=== PATIENT | male | born 2000 | race Caucasian/White ===

== ENCOUNTER 2023-10-18 17:56 | Emergency (ER) | payer OTHER, SELFPAY ==
[2023-10-18 17:56] VITALS: BMI 29.6
[2023-10-18 18:02] VITALS: BP 156/93
--- NOTE | 2023-10-18 18:24 | ED.GENMED ---
History of Present Illness
<BRISA Long Jr. Last Filed: 10/18/23 18:57>
General
Chief Complaint: Skin Problem
Source: patient
Exam Limitations: none
Time Seen by Provider: 10/18/23 18:07
Nursing documentation reviewed up to this point in time: agreed with
Travel History
Have you had any contact with someone who has COVID-19?: No
Do you have any symptoms of coronavirus? Fever > 100 degrees, chills, cough, shortness of breath, sore throat, loss of taste or smell, muscle aches, or headache?: No
History of Present Illness
History of Present Illness:
22-year-old male with past medical history of hypertension hyperlipidemia presenting to the emergency department today with concerns of ingrown nail to his right middle finger. Ongoing for the past 3 days. Denies any fevers or systemic symptoms.
No vomiting. Denies specific trauma to the area.
Past History
<BRISA Long Jr. Last Filed: 10/18/23 18:57>
Past History
ED Past Medical History: GERD, HTN, Hypercholesterolemia, Psychiatric (Anxiety) and Other (chronic draining pilonidal cyst buttock cleft,)
ED Past Surgical History: Other
Social History
Tobacco: Non-smoker
Alcohol: Occasional
Drug: None
Personal: Single
Living: with family
Employment: Employed
Review of Systems
<BRISA Long Jr. Last Filed: 10/18/23 18:57>
Review of Systems
Allergies reviewed?: Yes
All Other Systems: ROS reviewed and negative except as documented in HPI and ROS
Phy Exam
<BRISA Long Jr. Last Filed: 10/18/23 18:57>
Physical Exam
Physical Exam:
GENERAL: Alert , in no apparent distress
EYE: pupils equal and reactive
NECK: Supple, no significant adenopathy.
ENT: o/p clr, mmm.
CARDIAC: Regular rate and rhythm .
LUNGS: Clear breath sounds bilaterally, no acute respiratory distress, no wheezes/rales/rhonchi
ABDOMEN: Soft, without focal tenderness, no r/g, no cvat
NEUROLOGICAL: Alert and oriented, no focal neuro deficits
SKIN: Swelling discomfort to the nail fold of the right middle finger on the ulnar aspect no extension to the pulp of the finger no evidence of a felon no extension past the DIP warm and dry, skin intact.
MUSCULOSKELETAL: No edema, well perfused.
PSYCH: Normal and appropriate interaction.
Course
<Roverto Ndiaye Jr., PA-C - Last Filed: 10/18/23 18:57>
Vital Signs
Initial and Last Documented VS:
Initial Vital Signs
Temp Pulse Resp BP Pulse Ox
98.3 F 119 16 156/93 97
10/18/23 18:02 10/18/23 18:02 10/18/23 18:02 10/18/23 18:02 10/18/23 18:02
Last Documented Vital Signs
Temp Pulse Resp BP Pulse Ox
98.3 F 119 16 156/93 97
10/18/23 18:02 10/18/23 18:02 10/18/23 18:02 10/18/23 18:02 10/18/23 18:02
<Abhijeet Stack DO - Last Filed: 10/18/23 18:58>
Vital Signs
Initial and Last Documented VS:
Initial Vital Signs
Temp Pulse Resp BP Pulse Ox
98.3 F 119 16 156/93 97
10/18/23 18:02 10/18/23 18:02 10/18/23 18:02 10/18/23 18:02 10/18/23 18:02
Last Documented Vital Signs
Temp Pulse Resp BP Pulse Ox
98.3 F 119 16 156/93 97
10/18/23 18:02 10/18/23 18:02 10/18/23 18:02 10/18/23 18:02 10/18/23 18:02
<Roverto Ndiaye Jr., PA-C - Last Filed: 10/18/23 18:57>
MDM/Problems Addressed
MDM/Problems Addressed:
22-year-old male presenting to the emergency department today with concerns of what appears to be a paronychia to the right middle finger worsening over the past 3 days. No systemic symptoms no extension to the pulp of the finger no evidence of
felon no extension of redness proximally. This was drained with an incision and drainage as well as a digital block. Otherwise no risk factors for significant progression was not started on oral antibiotics. Stable for outpatient management
return precautions given.
<Roverto Ndiaye Jr., PA-C - Last Filed: 10/18/23 18:57>
*Critical Care Note
Total Time (30-74mins, 75-104mins- exclusive of procedures): Not Applicable
ED Attending Note
<Roverto Ndiaye Jr., PA-C - Last Filed: 10/18/23 18:57>
-
Portions of this chart may have been created with voice recognition software.� Occasional wrong word or��sound alike� substitutions may have occurred due to the inherent limitations of voice recognition software.
<Abhijeet Stack DO - Last Filed: 10/18/23 18:58>
ED Attending Note
Patient seen and examined by attending physician: Yes
I performed the substantive portion of visit, reviewed & personally made and approve the management plan that is documented in note by myself or FRANKO.: Yes
ED Attending Note:
Seen with PA examined independently agree with assessment and plan status post digital block incision of the paronychia
Discharge Plan
Departure
Patient Disposition: Home (Routine Discharge)
Date of Disposition: 10/18/23
Time of Disposition: 18:56
Patient with high blood pressure during this ER visit?: No
Condition: Good
Covid-19: Not Applicable
Discharge Problem:
Paronychia
Instructions: Paronychia (DC)
Prescriptions:
New
mupirocin 2 % ointment
1 applic topical BID Qty: 22 0RF
No Action
melatonin 5 MG tablet
10 - 30 mg PO HS
quetiapine [Seroquel] 300 MG tablet
300 mg PO HS
clonazepam 1 MG tablet
3 mg PO HS
temazepam 30 MG capsule
30 mg PO HS
clomipramine [Anafranil] 50 MG capsule
250 mg PO HS
clomipramine [Anafranil] 50 MG capsule
250 mg PO HS Qty: 15 0RF
cefadroxil [Duricef] 500 MG capsule
500 mg PO Q12 Qty: 14 0RF
Rx Instructions:
Take 1 tab every 12 hours as prescribed
Activity Restrictions/Additional Instructions:
You came to the emergency department today with concerns of a paronychia. This was drained here. Please keep the area clean covered use the topical antibiotic to the area. Please allow this to continue draining over the next few days as symptoms
should be improving. Return to the emergency department for any worsening, new or concerning symptoms.
Interventions
Interventions:
*Risk Screen - Suicide Last Done: 10/18/23 18:20
*General Assessment Last Done: 10/18/23 18:02
*Neglect/Abuse Screening Last Done: 10/18/23 18:20
ED- Fall Risk Assessment Last Done: 10/18/23 18:20
*ED COVID-19 Vaccine History Last Done: 10/18/23 18:02
ED-Skin Assessment Last Done: 10/18/23 18:20
Discharge Date and Time
Print Language: CZECH
== END 2023-10-18 19:06 | disposition home or self-care (01) ==
LOC: EMR 17:56
PROVIDERS: EMERGENCY PHYSICIAN Emergency Medicine; FAMILY PHYSICIAN Family Medicine
DX: L03.011 Cellulitis of right finger (principal); I10 Essential (primary) hypertension; F41.9 Anxiety disorder, unspecified; K21.9 Gastro-esophageal reflux disease without esophagitis; E78.00 Pure hypercholesterolemia, unspecified
CPT/HCPCS: 64450; 99283; 26010

== ENCOUNTER 2025-01-01 08:53 | Emergency (ER) | payer OTHER, SELFPAY ==
[2025-01-01 08:54] VITALS: BP 163/99
--- NOTE | 2025-01-01 09:01 | ED.GENMED ---
History of Present Illness
General
Chief Complaint: Prescription Refill
Source: patient
Exam Limitations: none
Time Seen by Provider: 01/01/25 08:58
Nursing documentation reviewed up to this point in time: agreed with
History of Present Illness
History of Present Illness:
24-year-old male presenting to the emergency department today for medication refill of Wellbutrin and Prozac. He claims that his prescriber who is a psychiatrist was unable to send this concern [place] the [place]. He has
not taken his meds over the past week and a half or so and starting to have worsening anxiety. Denies any thoughts of harming himself or others and denies any additional symptoms otherwise.
Past History
Past History
ED Past Medical History: GERD, HTN, Hypercholesterolemia, Psychiatric (Anxiety) and Other (chronic draining pilonidal cyst buttock cleft,)
ED Past Surgical History: Other
Social History
Tobacco: Non-smoker
Alcohol: Occasional
Drug: None
Personal: Single
Living: with family
Employment: Employed
Review of Systems
Review of Systems
Allergies reviewed?: Yes
All Other Systems: ROS reviewed and negative except as documented in HPI and ROS
Phy Exam
Physical Exam
Physical Exam:
GENERAL: Alert , in no apparent distress
EYE: pupils equal and reactive
NECK: Supple, no significant adenopathy.
ENT: o/p clr, mmm.
CARDIAC: Regular rate and rhythm .
LUNGS: Clear breath sounds bilaterally, no acute respiratory distress, no wheezes/rales/rhonchi
ABDOMEN: Soft, without focal tenderness, no r/g, no cvat
NEUROLOGICAL: Alert and oriented, no focal neuro deficits
SKIN: Warm and dry, skin intact.
MUSCULOSKELETAL: No edema, well perfused.
PSYCH: Normal and appropriate interaction.
Course
Vital Signs
Initial and Last Documented VS:
Initial Vital Signs
Temp Pulse Resp BP Pulse Ox
98.4 F 109 18 163/99 100
01/01/25 08:54 01/01/25 08:54 01/01/25 08:54 01/01/25 08:54 01/01/25 08:54
Last Documented Vital Signs
Temp Pulse Resp BP Pulse Ox
98.4 F 109 18 163/99 100
01/01/25 08:54 01/01/25 08:54 01/01/25 08:54 01/01/25 08:54 01/01/25 09:04
MDM/Problems Addressed
MDM/Problems Addressed:
24-year-old male presenting to the emergency department today see seeking medication refill unable to get refilled by his psychiatrist he was out of the country until about 3 weeks from today. Patient claims that he is taking Wellbutrin and Prozac
and has been taking these for many years. Patient refill was prescribed today until follow-up with psychiatrist. Return precautions given.
*Pulse Oximetry
SaO2: 100
Oxygen Mode of Delivery: Room air
*Critical Care Note
Total Time (30-74mins, 75-104mins- exclusive of procedures): Not Applicable
ED Attending Note
-
Portions of this chart may have been created with voice recognition software.� Occasional wrong word or��sound alike� substitutions may have occurred due to the inherent limitations of voice recognition software.
Discharge Plan
Departure
Patient Disposition: Home (Routine Discharge)
Date of Disposition: 01/01/25
Time of Disposition: 09:03
Patient with high blood pressure during this ER visit?: No
Condition: Good
Covid-19: Not Applicable
Discharge Problem:
Encounter for medication refill
Prescriptions:
New
fluoxetine [Prozac] 40 mg capsule
120 mg PO DAILY 30 Days Qty: 90 0RF
bupropion HCl [Wellbutrin XL] 150 mg tablet extended release 24 hr
150 mg PO DAILY 30 Days Qty: 30 0RF
No Action
melatonin 5 MG tablet
10 - 30 mg PO HS
quetiapine [Seroquel] 300 MG tablet
300 mg PO HS
clonazepam 1 MG tablet
3 mg PO HS
temazepam 30 MG capsule
30 mg PO HS
clomipramine [Anafranil] 50 MG capsule
250 mg PO HS
clomipramine [Anafranil] 50 MG capsule
250 mg PO HS Qty: 15 0RF
mupirocin 2 % ointment
1 applic topical BID Qty: 22 0RF
cefadroxil [Duricef] 500 MG capsule
500 mg PO Q12 Qty: 14 0RF
Rx Instructions:
Take 1 tab every 12 hours as prescribed
Activity Restrictions/Additional Instructions:
You came to the emergency department today with concerns of running out of medication. Please take the prescribed indications follow-up closely with your psychiatrist. Return for any worsening, new or concerning symptoms.
Interventions
Interventions:
*Risk Screen - Suicide Last Done: 01/01/25 08:54
*General Assessment Last Done: 01/01/25 08:54
*Neglect/Abuse Screening Last Done: 01/01/25 08:54
Discharge Date and Time
Print Language: WELSH
== END 2025-01-01 10:27 | disposition home or self-care (01) ==
LOC: EMR 08:53
PROVIDERS: EMERGENCY PHYSICIAN Emergency Medicine; FAMILY PHYSICIAN Family Medicine
DX: Z76.0 Encounter for issue of repeat prescription (principal); F41.9 Anxiety disorder, unspecified; I10 Essential (primary) hypertension; K21.9 Gastro-esophageal reflux disease without esophagitis; E78.00 Pure hypercholesterolemia, unspecified; F42.9 Obsessive-compulsive disorder, unspecified; Z87.820 Personal history of traumatic brain injury
CPT/HCPCS: 99282

== ENCOUNTER 2025-01-07 12:35 | Emergency (ER) | payer OTHER, SELFPAY ==
[2025-01-07 12:37] VITALS: BP 148/98
--- NOTE | 2025-01-07 14:28 | ED.GENMED ---
History of Present Illness
General
Chief Complaint: Throat Problem
Source: patient
Exam Limitations: none
Time Seen by Provider: 01/07/25 13:28
Nursing documentation reviewed up to this point in time: agreed with
History of Present Illness
History of Present Illness:
24 yo male with hx OCD presents with neck stiffness and tightness for the past two weeks, primarily located in the posterior region extending around to the sides.This is associated with tension headaches and recently, over the last three to four
days, he has experienced a sensation of throat tightness, described as 'like swallowing over a golf ball,' with occasional chest tightness. He reports the neck pain has interfered significantly with his sleep, causing him to wake multiple times to
adjust his pillow. He also mentions experiencing brain fog.
The patient�s heart rate, as monitored by his Apple Watch, has consistently been elevated at around 110 beats per minute, with a current reading of 118 bpm. He denies recent physical activities such as heavy lifting or travel that could explain his
symptoms. He goes to gym frequently but no new or strenuous workouts
He reports gastrointestinal issues, mainly watery diarrhea intermittently for the past week to ten days, sometimes occurring three to four times a day, without associated abdominal pain.
He has recently increased his dose of Prozac to 120 mg as advised by his psychiatrist, around the time his symptoms began. The patient suspects this may be contributing to his symptoms. He also takes Buproprion extended-release 150 mg daily.
He denies any smoking or alcohol use.
Past History
Past History
ED Past Medical History: GERD, HTN, Hypercholesterolemia, Psychiatric (Anxiety) and Other (chronic draining pilonidal cyst buttock cleft,)
ED Past Surgical History: Other
Social History
Tobacco: Non-smoker
Alcohol: Occasional
Drug: None
Personal: Single
Living: with family
Employment: Employed
Review of Systems
Review of Systems
Allergies reviewed?: Yes
All Other Systems: ROS reviewed and negative except as documented in HPI and ROS
Constitutional: Denies fever
EENT: Denies sore throat
Respiratory: Denies trouble breathing
Cardiac: Denies chest pain
ABD/GI: Reports nausea (mild) and diarrhea (intermittent); Denies abdominal pain, vomiting, bloody stools, black stools or anorexia
: Denies dysuria, frequency or difficulty voiding
Musculoskeletal: Reports neck pain (neck 'tightness' )
Skin: Reports no symptoms
Neurological: Denies dizzy, headache, weakness or numbness
Phy Exam
Physical Exam
Physical Exam:
GENERAL: No acute distress. A&Ox3.
CONSTITUTIONAL: Afebrile.
Neck: Supple, full range of motion with ease
EYES: clear, conjunctivae normal, PERRL
ENMT: moist mucus membranes, Pharynx nl
RESPIRATORY: Regular respirations, nonlabored, lungs clear.
CARDIOVASCULAR: Regular rate and rhythm, no murmurs, no rubs. Mildly tachycardic
GI: Soft, nontender, normal BS
MUSCULOSKELETAL: Tender generally to palpation of Posterior and lateral neck soft tissues. Full ROM of neck. Moves with ease. Well perfused.
SKIN: Warm, dry, pink
PSYCH: Normal mood and affect. Well kept, interactive and appropriate
NEUROLOGIC: Awake, alert and oriented. No focal neurological deficits. No tremors
Course
Orders/Labs/Results
Orders:
Orders
01/07/25 14:42
0.9% Sodium Chloride 1000 ml [Nss] 1,000 ml IV BOLUS
01/07/25 14:47
Electrocardiogram (*1) Urgent
Reason for Study: Chest Pain
EKG- Treatment ONCE
01/07/25 14:52
Complete Blood Count/With Diff Urgent
Comprehensive Metabolic Panel Urgent
TSH Reflex To Free T4 Urgent
Troponin I Urgent
Abnormal Lab Results
01/07/25
14:52
WBC 11.2 H 10^3/uL
(4.8-10.8)
RBC 6.33 H 10^6/uL
(4.70-6.10)
Hgb 19.2 H g/dL
(13.0-18.0)
Hct 54.9 H %
(39.0-52.0)
Abs Immat Gran (auto) 0.1 H 10^3/uL
(0-0.05)
Absolute Neuts (auto) 8.3 H 10^3/uL
(1.4-6.5)
Absolute Monos (auto) 0.8 H 10^3/uL
(0.1-0.6)
Lymphocytes % 17.1 L %
(20.5-51.1)
Glucose 103 H mg/dl
(70-99)
ALT 57 H U/L
(0-50)
Albumin 5.3 H g/dl
(3.5-5.0)
01/07/25 14:52
01/07/25 14:52
Vital Signs
Initial and Last Documented VS:
Initial Vital Signs
Temp Pulse Resp BP Pulse Ox
98.4 F 108 16 148/98 100
01/07/25 12:37 01/07/25 12:37 01/07/25 12:37 01/07/25 12:37 01/07/25 12:37
Last Documented Vital Signs
Temp Pulse Resp BP Pulse Ox
98.4 F 86 18 148/98 100
01/07/25 12:37 01/07/25 17:08 01/07/25 17:08 01/07/25 12:37 01/07/25 14:32
MDM/Problems Addressed
Differential Diagnosis Includes:
The Differential Diagnosis includes, in no particular order and is not limited to:
- Muscular strain or spasms
- Anxiety-induced physical symptoms
- Medication side effects
-Serotonin syndrome
- Thyroid dysfunction
MDM/Problems Addressed:
24 yo male with hx OCD presents with neck stiffness and tightness for the past two weeks, primarily located in the posterior region extending around to the sides.This is associated with tension headaches and recently, over the last three to four
days, he has experienced a sensation of throat tightness, described as 'like swallowing over a golf ball,' with occasional chest tightness. He reports the neck pain has interfered significantly with his sleep, causing him to wake multiple times to
adjust his pillow. He also mentions experiencing brain fog.
The patient�s heart rate, as monitored by his Apple Watch, has consistently been elevated at around 110 beats per minute, with a current reading of 118 bpm. He denies recent physical activities such as heavy lifting or travel that could explain his
symptoms. He goes to gym frequently but no new or strenuous workouts
He reports gastrointestinal issues, mainly watery diarrhea intermittently for the past week to ten days, sometimes occurring three to four times a day, without associated abdominal pain.
He has recently increased his dose of Prozac to 120 mg as advised by his psychiatrist, around the time his symptoms began. The patient suspects this may be contributing to his symptoms. He also takes Buproprion extended-release 150 mg daily.
He denies any smoking or alcohol use.
He denies feeling anxious
Mild nausea, insomnia, diarrhea, muscle tightness about the neck, throat and upper chest:
No clonus, no hyperreflexia, no fever, no muscle rigidity, no excessive nervousness on exam.
Acute Problems:
- Muscular neck pain and stiffness
- Elevated heart rate
- Persistent diarrhea and gastrointestinal disturbance
Chronic Problems:
- Anxiety
- Obsessive-Compulsive Disorder
Plan:
- Consideration for muscle relaxants at night to help with neck pain and sleep.
- Research potential side effects of Prozac related to symptoms.
- Follow up with psychiatrist regarding medication adjustments.
- Advise continuation of Tylenol and possible trial of NSAIDs for muscular pain.
- Monitor symptoms and seek follow-up if symptoms persist or worsen.
5:00 p.m.
CBC: No clinically significant abnormality
CMP normal
TSH normal troponin normal
EKG NSR heart rate 90
After 1L IVF's patient states his neck is feeling better. His heart rate is in the 80s to 90s on the monitor
Case discussed with Dr. Miller who agrees with plan: Patient to not take his Prozac today and restart it tomorrow at 80 mg/day.
Patient will contact his PCP Thursday as his psychiatrist is away for the next week or two
*Pulse Oximetry
SaO2: 100
Oxygen Mode of Delivery: Room air
Patient hypoxic: no
*Critical Care Note
Total Time (30-74mins, 75-104mins- exclusive of procedures): Not Applicable
ED Attending Note
-
Portions of this chart may have been created with voice recognition software.� Occasional wrong word or��sound alike� substitutions may have occurred due to the inherent limitations of voice recognition software.
Discharge Plan
Departure
Patient Disposition: Home (Routine Discharge)
Date of Disposition: 01/07/25
Time of Disposition: 17:19
Patient with high blood pressure during this ER visit?: No
Condition: Good
Discharge Problem:
Adverse reaction to selective serotonin reuptake inhibitor, Neck and shoulder pain
Instructions: Serotonin syndrome
Prescriptions:
No Action
melatonin 5 MG tablet
10 - 30 mg PO HS
quetiapine [Seroquel] 300 MG tablet
300 mg PO HS
clonazepam 1 MG tablet
3 mg PO HS
temazepam 30 MG capsule
30 mg PO HS
clomipramine [Anafranil] 50 MG capsule
250 mg PO HS
clomipramine [Anafranil] 50 MG capsule
250 mg PO HS Qty: 15 0RF
mupirocin 2 % ointment
1 applic topical BID Qty: 22 0RF
fluoxetine [Prozac] 40 mg capsule
120 mg PO DAILY 30 Days Qty: 90 0RF
bupropion HCl [Wellbutrin XL] 150 mg tablet extended release 24 hr
150 mg PO DAILY 30 Days Qty: 30 0RF
cefadroxil [Duricef] 500 MG capsule
500 mg PO Q12 Qty: 14 0RF
Rx Instructions:
Take 1 tab every 12 hours as prescribed
Referrals:
Johnny Allen MD [Family Provider, Family Practice] - Follow up in 2-3 days
Activity Restrictions/Additional Instructions:
As we discussed, drink plenty of water/fluids.
Do not take your Prozac today
Tomorrow, you may start the Prozac but only at 80 mg a day
Contact your primary doctor Thursday for further instruction.
Interventions
Interventions:
*Risk Screen - Suicide Last Done: 01/07/25 12:37
*General Assessment Last Done: 01/07/25 12:37
*Neglect/Abuse Screening Last Done: 01/07/25 12:37
*Nursing Disposition Last Done: 01/07/25 17:40
ED-EENT Assessment Last Done: 01/07/25 16:00
Discharge Date and Time
Discharge Date/Time: 01/07/25 17:40
Print Language: URDU
[2025-01-07] MEDS: NSS 1000 IV (14:53)
[2025-01-07 14:58] LABS: % Basophils 0.6 % (0-2); % Eosinophils 0.9 % (0-6); % Immature Granulocytes 0.4 % (0-0.5); % Lymphocytes 17.1 % (20.5-51.1); Absolute Basophils 0.1 10^3/uL (0-0.2); Absolute Eosinophils 0.1 10^3/uL (0-0.7); Absolute Immature Granulocytes 0.1 10^3/uL (0-0.05); Absolute Lymphocytes 1.9 10^3/uL (1.2-3.4); Absolute Monocytes 0.8 10^3/uL (0.1-0.6); Absolute Neutrophils 8.3 10^3/uL (1.4-6.5); Hematocrit 54.9 % (39.0-52.0); Hemoglobin 19.2 g/dL (13.0-18.0); Mean Corpuscular Hgb 30.3 pg (27.0-31.0); Mean Corpuscular Volume 86.7 fL (80.0-94.0); Mean Platelet Volume 8.5 fL (7.4-10.4); Nucleated Red Blood Cells % 0 % (-); Platelet Count 240 10^3/uL (130-400); Red Blood Cell Count 6.33 10^6/uL (4.70-6.10); Red Cell Dist. Width 13.2 % (11.5-14.5); White Blood Cell Count 11.2 10^3/uL (4.8-10.8)
[2025-01-07 15:16] LABS: ALT (SGPT) 57 U/L (0-50); AST (SGOT) 26 U/L (17-59); Albumin 5.3 g/dl (3.5-5.0); Alkaline Phosphatase 67 U/L (38-126); Blood Urea Nitrogen 12 mg/dl (9-20); Calcium 9.9 mg/dl (8.4-10.2); Carbon Dioxide 28 mmol/L (22-30); Chloride 102 mmol/L (98-107); Glucose 103 mg/dl (70-99); Potassium 4.5 mmol/L (3.5-5.1); Sodium 140 mmol/L (135-145); Total Bilirubin 0.7 mg/dl (0.2-1.3); eGFR > 60.00
[2025-01-07 15:21] LABS: Troponin I < 0.012 ng/ml
[2025-01-07 15:53] LABS: TSH Reflex To Free T4 0.99 uIU/ml (0.47-4.68)
== END 2025-01-07 17:40 | disposition home or self-care (01) ==
LOC: EMR 12:35
PROVIDERS: Registered Nurse; EMERGENCY PHYSICIAN Emergency Medicine; FAMILY PHYSICIAN Family Medicine
DX: G44.209 Tension-type headache, unspecified, not intractable (principal); M54.2 Cervicalgia; M25.519 Pain in unspecified shoulder; R19.7 Diarrhea, unspecified; R11.0 Nausea; J02.9 Acute pharyngitis, unspecified; T50.905A Adverse effect of unspecified drugs, medicaments and biological substances, initial encounter; F42.9 Obsessive-compulsive disorder, unspecified; I10 Essential (primary) hypertension; F41.9 Anxiety disorder, unspecified; E78.00 Pure hypercholesterolemia, unspecified; K21.9 Gastro-esophageal reflux disease without esophagitis; Z87.820 Personal history of traumatic brain injury
CPT/HCPCS: 99284; 96360; 80053; 84443; 84484; 85025; 93005